=== PATIENT | male | born 2000 | race Caucasian/White ===

== ENCOUNTER 2021-06-09 11:18 | Emergency (ER) | payer OTHER, SELFPAY ==
[2021-06-09 11:19] VITALS: BP 163/97; PULSE 108; RESP 15; TEMP 36; O2SAT 97; BMI 27.9
--- NOTE | 2021-06-09 11:35 | RAD_ITS ---
STUDY: X-RAY - RIGHT HAND REASON FOR EXAM: Right hand pain and swelling, right hand injury. TECHNIQUE: 3 view(s) of the hand. COMPARISON: None. FINDINGS: Normal radiocarpal articulation. Normal distal radioulnar joint. Normal visualized carpal bones. Normal carpal articulations Normal carpometacarpal articulation of the thumb. Normal second through fourth carpometacarpal joints. There is a nondisplaced fracture of the proximal fifth metacarpal with intra-articular extension and suspected subluxation of the fifth carpometacarpal articulation. Normal metacarpophalangeal joint of the thumb. Normal interphalangeal joint of the thumb. Normal proximal and distal phalanges of the thumb. Normal metacarpophalangeal joints of the second through fifth fingers. Normal proximal and distal interphalangeal joints of the second through fifth fingers. Normal phalanges of the second through fifth fingers. There is dorsal soft tissue swelling. RAD/Hand Min 3 Views IMPRESSION: Proximal fifth metacarpal fracture with suspected subluxation of the fifth carpometacarpal articulation. Electronically Signed: Jimmy Lazar MD at 12:16 EST Tel , Service support ,
--- NOTE | 2021-06-09 11:36 | EDS_ITS ---
HPI History of Present Illness Chief Complaint: Upper Extremity Injury Detail of Chief Complaint: Right hand injury Informant: patient Occured/Mechanism Mechanism/Context: Yes blunt trauma Onset/Context/Timing Onset: Yesterday Context: Sudden Onset Timing: Continuous Quality of Pain: Dull and Aching Current Severity: Mild Maximum Severity: Mild Associated Symptoms Associated Symptoms: Negative for Parasthesia, Weakness and Loss of Funtion Narrative Narrative: 20-year-old male left hand dominant. Yesterday got frustrated and slammed his right hand down and did not realize he had a posts. Complaining of pain to his right hand along the fifth or small finger metacarpal. No prior history or surgery to this hand. Prior similar symptoms: No Recent Illness/Hospitalization: No PFSH PFSH Medical History no medical history no medical history Home Medications NK 06/09/21 [History Last Taken Unknown] Allergy/AdvReac Type Severity Reaction Status Date / Time amoxicillin Allergy Hives Verified 06/09/21 11:19 Surgical History no surgical history Social History Smoking Status: Light Smoker (<10/day) ROS ROS ED ROS Narrative Denies recent illness. Review of Systems ROS Unobtainable: Denies due to encephalopathy Constitutional Constitutional ED: Denies fever(s) Eyes Eyes: Denies change in vision ENT ENT ED: Denies ear pain Cardiovascular Cardiovascular: Denies chest pain Respiratory/Chest Respiratory/Chest: Denies dyspnea Gastrointestinal Gastrointestinal: Denies abdominal pain Genitourinary Genitourinary ED: Denies dysuria Musculoskeletal Musculoskeletal: Denies myalgias Integumentary Denies rash Neurologic Neurologic: Denies headache(s) Psychiatric Psychiatric: Denies depression Endocrine Endocrinology: Denies polyuria Hematologic/Lymphatic Hematologic/Lymphatic: Denies easy bruising Allergic/Immunologic Allergic/Immunologic ED: Denies urticaria EXAM Physical Exam Narrative Exam Narrative: 89-year-old male no acute distress. Only injuries the right hand. He has mild swelling and tenderness along the medial aspect of his right hand and primarily along the small finger pinky metacarpal. No gross bony deformity. He has full flexion-extension of the right hand and flexion- extension of the right wrist. Skins intact. Hand is neurovascularly intact. Otherwise exam normal. Const Vital Signs: 06/09/21 11:19 Temperature 96.8 F L Temperature Source Temporal Pulse Rate 108 H Respiratory Rate 15 Blood Pressure 163/97 H Blood Pressure Mean 119 Pulse Ox 97 Oxygen Delivery Method Room Air Positive well nourished and well developed; Negative for obese, cachectic, contractures or unkempt General Appearance ED: well developed and NAD; Negative for unkempt, cachectic, contractures, cyanotic or diaphoretic Nutritional Appearance: Negative for cachectic or obese HEENT Reports moist mucous membranes normocephalic and atraumatic; Negative for trauma or tenderness Eyes PERRL and EOMs intact bilaterally Neck full ROM and supple General: Negative for tenderness Chest Wall inspection of chest normal and palpation of chest normal Resp normal respiratory effort and clear to auscultation bilaterally Effort and Inspection: Negative for pain with movement Auscultation: Negative for rales, rhonchi or wheezes Cardio regular rate, regular rhythm, S1 normal heart sound, S2 normal heart sound and no murmurs GI non-tender, non-distended and no masses Auscultation: normoactive bowel sounds Palpation: soft; Negative for tender or guarding Back/Spine no CVA tenderness Extremity normal to inspection and full ROM Extremity Narrative: Mild swelling right hand over the fifth or small metacarpal. No gross bony deformity. Skin intact. Full flexion-extension intact. Neuro oriented x3 and moves all extremities Sensorium / Orientation: alert, oriented to person, oriented to place and oriented to time; Negative for orientation impaired, lethargic or stuporous Psych mental status grossly normal Appearance: Negative for unkempt Attitude: No agitated Mood & Affect: Negative for depressed or tearful Skin Rashes: no rashes Trauma: no lacerations or abrasions; Negative for abrasion or laceration MDM MDM MDM Narrative Medical decision making narrative: Went over the films with the patient.Blunt trauma right hand x-ray being obtained. Fracture versus contusion. Patient did not want anything for pain. Repeat exam at 12:13 PM unchanged. Patient was placed in a short arm, Ortho- Glass, fabricated ulnar gutter splint. He will be referred to orthopedics for follow-up. Radiography Diagnostic Testing: Right hand x-ray, 3 views, interpreted by myself shows fracture of the base of the fifth or small metacarpal. Procedures Upper Extremity Splints Upper Extremity Splint: Orthoglass Splint Fabrication: Fabricated Location: Right Discharge Plan Triage Chief Complaint: Upper Extremity Injury ED Provider: Esequiel Miller Dx/Rx/DC Orders Clinical Impression: Fracture of metacarpal Instructions: ED Closed Hand Fracture (Adult) Prescriptions: No Action NK RF: 0 Primary Care Provider: Vinay Shaikh Referrals: Vinay Shaikh MD [Primary Care Provider] - Favian Martinez DO [STAFF PHYSICIAN] - As soon as possible Activity Restrictions/Additional Instructions: Ice and elevate to decrease pain and swelling. You have a fracture of the base of your fifth metacarpal or small finger. Keep the splint dry and clean. Call and follow-up with orthopedics. Motrin and Tylenol for pain. Disposition Disposition: Home, Self Care
[2021-06-09 12:27] VITALS: RESP 16
== END 2021-06-09 12:27 | disposition home or self-care (01) ==
PROVIDERS: Emergency Provider Emergency Medicine; PCP Pediatrics
DX: S62.316A Displaced fracture of base of fifth metacarpal bone, right hand, initial encounter for closed fracture (principal); W22.8XXA Striking against or struck by other objects, initial encounter; Y92.9 Unspecified place or not applicable; Y99.9 Unspecified external cause status; F17.200 Nicotine dependence, unspecified, uncomplicated
CPT/HCPCS: 73130; 99282